=== PATIENT | female | born 1990 | race Hispanic/Latino ===

== ENCOUNTER 2018-03-31 10:17 | Outpatient (CLI) | payer OTHER ==
--- NOTE | 2018-03-31 10:50 | RAD ---
FOUR VIEWS OF THE LEFT WRIST: DATE: 03/31/18. COMPARISON: None. HISTORY: Wrist pain for 1 month, no history of injury. FINDINGS: There is no displaced fracture or evidence of dislocation. No radiopaque foreign body or subcutaneou s gas is noted. IMPRESSION: No acute findings. POS: [facility]
== END 2018-03-31 10:18 | disposition home or self-care (01) ==
LOC: MADRAD 10:17
PROVIDERS: ATTEND Family Medicine
DX: M25.532 Pain in left wrist (principal)

== ENCOUNTER 2020-08-04 08:12 | Emergency (ER) | payer SELFPAY ==
[2020-08-04 09:31] LABS: BHCG - Serum POSITIVE (NEGATIVE); Pregs Control Background? CLEAR/WHITE (CLR/WHITE); Pregs Control Bar Appear? YES (CONTROL BAR)
== END 2020-08-04 10:20 | disposition home or self-care (01) ==
LOC: MADERS 08:12
DX: O20.9 Hemorrhage in early pregnancy, unspecified (principal); Z3A.01 Less than 8 weeks gestation of pregnancy
CPT/HCPCS: 84702; 84703; 86900; 86901; 99284